=== PATIENT | male | born 1960 | race Caucasian/White ===

== ENCOUNTER 2019-10-11 00:50 | Outpatient (CLI) | payer OTHER, SELFPAY ==
[2019-10-11 18:19] LABS: SARS-CoV-2 RNA PCR Negative
== END 2019-10-11 00:51 | disposition home or self-care (01) ==
LOC: ANHCOVIDDT 00:51
PROVIDERS: PCP Internal Medicine; Visit Provider Internal Medicine Gastroenterology
DX: Z01.812 Encounter for preprocedural laboratory examination (principal); Z20.828 Contact with and (suspected) exposure to other viral communicable diseases
CPT/HCPCS: 87635; C9803; U0003

== ENCOUNTER 2019-10-13 01:28 | Day surgery (SDC) | payer OTHER, SELFPAY ==
[2019-10-05 13:27] VITALS: BMI 29.2
[2019-10-13 10:04] VITALS: BP 181/93; PULSE 82; RESP 16; TEMP 36.8; O2SAT 98; BMI 28.3
[2019-10-13] MEDS: LACTATED RINGERS 1,000 ML 150 ML IV CONT (10:20)
--- NOTE | 2019-10-13 10:35 | P.PNAN_ITS ---
Anes - Initial Pre Proc Eval Procedure: Operation Date: 10/13/19 11:15 Proposed Procedures p Screening Colonoscopy - Willie Bragg MD Date/Time: 10/13/19 10:35 Surgeon: Willie Bragg MD Pre Op Diagnosis: neoplasm screening Patient Data Age: 58 Gender: M Height: 5 ft 6 in Weight: 79.7 kg Last Vital Signs Temp 98.2 F 10/13/19 10:04 Pulse 82 10/13/19 10:04 Resp 16 10/13/19 10:04 BP 181/93 H 10/13/19 10:04 Pulse Ox 98 10/13/19 10:04 Allergies Allergy/AdvReac Type Severity Reaction Status Date / Time azithromycin Allergy Unknown hives Verified 10/13/19 10:03 Z-PACK Allergy Mild hives Uncoded 10/13/19 10:03 Home Medications Medication Instructions Recorded Confirmed Type aspirin 81 mg tablet,delayed 81 mg PO DAILY 01/19/19 10/13/19 History release omega-3 fatty acids 1,000 mg 1,000 mg PO DAILY 01/19/19 10/13/19 History capsule lisinopril 10 mg tablet 10 mg PO DAILY #90 tablet 09/01/19 10/13/19 Rx atorvastatin 80 mg tablet 80 mg PO DAILY #90 tablet 09/11/19 10/13/19 Rx ezetimibe [Zetia] See Rx Instructions .ROUTE .COMPLEX 10/05/19 10/13/19 History peg 3350-electrolytes 236 240 ml PO Q10M #4000 ml 10/09/19 Rx gram-22.74 gram-6.74 gram-5.86 gram solution Patient hx anesthesia problems: none Family hx anesthesia problems: none PMFSH Past Medical History Medical History (Updated 10/13/19 @ 10:35 by Ben West MD) Contact dermatitis Eczema Hypertension Infection of thumb Mixed hyperlipidemia Surgical History Surgical History [place] teeth removed Social History Social History Smoking status: Never smoker Alcohol intake: current Gender identity (if verbalized by the patient): Male Sexual Orientation (if Verbalized by the Patient): Straight or Heterosexual Anes - Eval Final PreProcedure Day of Procedure 10/13/19 10:35 Patient weight: normal Heart: regular rate and rhythm Lungs: clear to auscultation Airway: Mallampati scale class II Neurological: alert and oriented Last oral intake: >/= 8 hours ASA classification: II Emergent: no Anesthetic plan: proceed Anesthesia type and monitoring: general GIVS and standard monitoring Informed Consent: The patient's anesthetic plan and its attendant risks and linnette efits were discussed with the patient/family/POA. Questions were solicited and answers provided to the satisfaction of the patient/family/POA.
--- NOTE | 2019-10-13 11:23 | PM.HPGS ---
History of Present Illness History of Present Illness Consent: Risks, benefits, and alternatives have been discussed and questions answered. Patient agrees to proceed with procedure. Chief complaint: neoplasm screening Narrative: Manuel Bolaños is a 58 year old male here for first colonoscopy, had + cologuard Review of Systems Constitutional: Constitutional: Denies headache(s) and Denies weakness Eyes: Eyes: Denies blurry vision ENT: Reports Normal hearing present, Denies headache(s) and Denies neck pain Cardiovascular: Cardiovascular: Denies chest pain and Denies dyspnea Respiratory: Respiratory: Denies dyspnea Gastrointestinal: Gastrointestinal: Reports no additional gastrointestinal complaints Genitourinary: Genitourinary: Denies dysuria Musculoskeletal: Musculoskeletal: Denies neck pain Integumentary/Breasts: Skin/Breast: Denies dry skin Neurologic: Reports Normal hearing present, Denies headache(s) and Denies weakness Psychiatric: Psychiatric: Denies anxiety Endocrine: Endocrine: Denies change in body appearance Hematologic/Lymphatic: Hematologic/Lymphatic: Denies easy bleeding Allergic/Immunologic: Allergic/Immunologic: Denies urticaria PMFSH Past Medical History Medical History (Updated 10/13/19 @ 11:23 by Willie Bragg MD) Contact dermatitis Eczema Hypertension Infection of thumb Mixed hyperlipidemia Positive colorectal cancer screening using Cologuard test Surgical History Surgical History [place] teeth removed Social History Social History Smoking status: Never smoker Alcohol intake: current Gender identity (if verbalized by the patient): Male Sexual Orientation (if Verbalized by the Patient): Straight or Heterosexual Meds Home Medications and Allergies Home Medications Medication Instructions Recorded Confirmed Type aspirin 81 mg tablet,delayed 81 mg PO DAILY 01/19/19 10/13/19 History release omega-3 fatty acids 1,000 mg 1,000 mg PO DAILY 01/19/19 10/13/19 History capsule lisinopril 10 mg tablet 10 mg PO DAILY #90 tablet 09/01/19 10/13/19 Rx atorvastatin 80 mg tablet 80 mg PO DAILY #90 tablet 09/11/19 10/13/19 Rx ezetimibe [Zetia] See Rx Instructions .ROUTE .COMPLEX 10/05/19 10/13/19 History peg 3350-electrolytes 236 240 ml PO Q10M #4000 ml 10/09/19 Rx gram-22.74 gram-6.74 gram-5.86 gram solution Allergies Allergy/AdvReac Type Severity Reaction Status Date / Time azithromycin Allergy Unknown hives Verified 10/13/19 10:03 Z-PACK Allergy Mild hives Uncoded 10/13/19 10:03 Vital Signs Vital Signs - 24 hr 10/13/19 10:04 Temperature 98.2 F Pulse Rate 82 Respiratory Rate 16 Blood Pressure 181/93 H Pulse Oximetry 98 Exam Const: General: comfortable and no acute distress HENMT: General nose exam: Normal nares present Eyes: General: appearance normal, both eyes and all related structures Neck: Neck: no JVD Resp: Auscultation: clear to auscultation bilaterally Cardio: Rate: regular rate Rhythm: regular rhythm GI: Inspection: non-distended GI Palp: Yes Soft to palpation Skin: General skin exam: normal color Neuro: General: gait normal Speech: normal speech Extrem: General: normal to inspection Psych: Mental Status: mental status grossly normal Assessment and Plan Assessment and plan (1) Positive colorectal cancer screening using Cologuard test: Code(s): R19.5 - Other fecal abnormalities Status: Acute Assessment and Plan: will proceed with colonoscopy
[2019-10-13 11:53] VITALS: BP 121/72; PULSE 61; RESP 16; O2SAT 99
[2019-10-13 12:03] VITALS: BP 141/79; PULSE 60; RESP 22; O2SAT 94
[2019-10-13 12:13] VITALS: BP 138/82; PULSE 60; RESP 15; O2SAT 100
== END 2019-10-13 12:27 | disposition home or self-care (01) ==
PROVIDERS: PCP Internal Medicine; Visit Provider Internal Medicine Gastroenterology
PROC: 0DJD8ZZ Inspection of Lower Intestinal Tract, Via Natural or Artificial Opening Endoscopic (ICD-10-PCS; CPT 45378; principal; 2019-10-13 11:15)
DX: R19.5 Other fecal abnormalities (principal); D12.0 Benign neoplasm of cecum; D12.2 Benign neoplasm of ascending colon; D12.8 Benign neoplasm of rectum; I10 Essential (primary) hypertension; E78.2 Mixed hyperlipidemia
CPT/HCPCS: 45385; 45381; 88305; J2001; J2704; J7120

== ENCOUNTER 2021-12-17 13:50 | Outpatient (CLI) | payer OTHER, SELFPAY ==
--- NOTE | ~2021-12-17 | XR_ITS ---
EXAMINATION: XR chest 2V Exam Date/Time: 12/17/2021 14:15 CDT HISTORY: R05.9-Cough, unspecified x2 months, occasionally productive Comparison: None available. RESULT: Lines, tubes, and devices: None. Lungs and pleura: Calcified right midlung granuloma. Streaky perihilar opacities with cuffing. Cardiomediastinal silhouette: Unremarkable. Other: No acute osseous or upper abdominal finding. IMPRESSION: Pulmonary opacities may represent bronchiolitis, as can be seen with atypical infection, asthma, aspi ration, and small airways disease. Reviewed, dictated and finalized at location K. IMPRESSION: Pulmonary opacities may represent bronchiolitis, as can be seen with atypical i nfection, asthma, aspiration, and small airways disease.
== END 2021-12-17 13:51 | disposition home or self-care (01) ==
PROVIDERS: PCP Internal Medicine; Visit Provider Internal Medicine
DX: R05.9 Cough, unspecified (principal); R91.8 Other nonspecific abnormal finding of lung field
CPT/HCPCS: 71046

== ENCOUNTER 2022-01-21 07:09 | Outpatient (CLI) | payer OTHER, SELFPAY ==
--- NOTE | ~2022-01-21 | XR_ITS ---
XR chest 2V 01/21/2022 07:26 Indication: Bronchitis. Dyspnea. Procedure: PA and lateral views of the chest Comparison: 12/17/2021 Findings: Heart size normal. No focal air space disease, pulmonary edema, pleural effusion or suspect ed pneumothorax. Impression: 1: No acute cardiopulmonary disease. Reviewed, dictated and finalized at location A. [employer]PER[employer] Impression: 1: No acute cardiopulmonary disease.
== END 2022-01-21 07:10 | disposition home or self-care (01) ==
LOC: ANHIMG 07:13
PROVIDERS: PCP Internal Medicine; Visit Provider Internal Medicine
DX: J21.9 Acute bronchiolitis, unspecified (principal)
CPT/HCPCS: 71046

== ENCOUNTER 2022-09-18 03:57 | Day surgery (SDC) | payer OTHER, SELFPAY ==
[2022-09-09 09:07] VITALS: BMI 29.0
[2022-09-18 07:02] VITALS: BP 135/89; PULSE 60; RESP 20; TEMP 36.5
[2022-09-18] MEDS: LACTATED RINGERS 1,000 ML 150 ML IV CONT (07:17)
--- NOTE | 2022-09-18 07:55 | WPDANESEPPF ---
Anes - Initial Pre Proc Eval Procedure: Operation Date: 09/18/22 08:15 Proposed Procedures p Colonoscopy - Willie Bragg MD Date/Time: 09/18/22 07:55 Surgeon: Willie Bragg MD Pre Op Diagnosis: hx of colon polyps Patient Data Age: 61 Gender: M Height: 1.7 m Weight: 85 kg Last Vital Signs Temp 97.7 F 09/18/22 07:02 Pulse 60 09/18/22 07:02 Resp 20 09/18/22 07:02 BP 135/89 09/18/22 07:02 O2 Del Method Room Air 09/18/22 07:02 Allergies Allergy/AdvReac Type Severity Reaction Status Date / Time azithromycin Allergy Unknown hives Verified 09/18/22 07:01 Home Medications Medication Instructions Recorded Confirmed Type aspirin 81 mg tablet,delayed 81 mg PO DAILY 01/19/19 09/09/22 History release (Aspir-Low) omega-3 fatty acids 1,000 mg 1,000 mg PO DAILY 01/19/19 09/09/22 History capsule (Fish Oil Concentrate) atorvastatin 80 mg tablet 80 mg PO DAILY 09/09/22 09/09/22 History ezetimibe 10 mg tablet 10 mg PO DAILY 09/09/22 09/09/22 History lisinopril 10 mg tablet 10 mg PO DAILY 09/09/22 09/09/22 History Patient hx anesthesia problems: none Family hx anesthesia problems: none Results Review: All pre-operative results and documents have been reviewed as part of the pre-operative evaluation. [facility] Past Medical History Medical History Contact dermatitis Eczema Hypertension Infection of thumb Mixed hyperlipidemia Positive colorectal cancer screening using Cologuard test Surgical History Surgical History [place] teeth removed Family History Family History Father Malignant neoplasm of prostate Family history of diabetes mellitus in first degree relative Other Family history of premature coronary heart disease Social History Social History Smoking status: Never smoker Second hand tobacco smoke exposure: No Alcohol intake: current Drinks per week: 1 Alcohol use details: occasional Substance use: never Substance use type: does not use Lack of Transportation: No Lack of Food: Never True Current Housing: I Have Housing Concerned About Future Housing: No Difficulty Paying Gas/Electric Bills: No Difficulty Paying for Meds: No Currently Unemployed: No Education: High School Diploma/GED Difficulty w/ Childcare or Family Care: No Living arrangements: with family Gender identity (if verbalized by the patient): Male Sexual Orientation (if Verbalized by the Patient): Straight or Heterosexual Spiritual care concerns: No Anes - Eval Final PreProcedure Day of Procedure 09/18/22 07:55 Patient weight: normal Heart: regular rate and rhythm Lungs: clear to auscultation Airway: Mallampati scale class II Neurological: alert and oriented Last oral intake: >/= 8 hours ASA classification: II Emergent: no Anesthetic plan: proceed Anesthesia type and monitoring: general GIVS and standard monitoring Results Review: All pre-operative results and documents have been reviewed as part of the pre-operative evaluation. Informed Consent: The patient's anesthetic plan and its attendant risks and benefits were discussed with the patient/family/POA. Questions were solicited and answers provided to the satisfaction of the patient/family/POA.
--- NOTE | 2022-09-18 08:05 | PM.HPGS ---
History of Present Illness History of Present Illness Consent: Risks, benefits, and alternatives have been discussed and questions answered. Patient agrees to proceed with procedure. Chief complaint: hx of colon polyps Narrative: Manuel Bolaños is a 61 year old male with polyps in 2020 Review of Systems Constitutional: Constitutional: Denies headache(s) and Denies weakness Eyes: Eyes: Denies blurry vision ENT: Reports Normal hearing present, Denies headache(s) and Denies neck pain Cardiovascular: Cardiovascular: Denies chest pain and Denies dyspnea Respiratory: Respiratory: Denies dyspnea Gastrointestinal: Gastrointestinal: Reports no additional gastrointestinal complaints Genitourinary: Genitourinary: Denies dysuria Musculoskeletal: Musculoskeletal: Denies neck pain Integumentary/Breasts: Skin/Breast: Denies dry skin Neurologic: Reports Normal hearing present, Denies headache(s) and Denies weakness Psychiatric: Psychiatric: Denies anxiety Endocrine: Endocrine: Denies change in body appearance Hematologic/Lymphatic: Hematologic/Lymphatic: Denies easy bleeding Allergic/Immunologic: Allergic/Immunologic: Denies urticaria PMFSH Past Medical History Medical History Contact dermatitis Eczema Hypertension Infection of thumb Mixed hyperlipidemia Positive colorectal cancer screening using Cologuard test Surgical History Surgical History [place] teeth removed Family History Family History Father Malignant neoplasm of prostate Family history of diabetes mellitus in first degree relative Other Family history of premature coronary heart disease Social History Social History Smoking status: Never smoker Second hand tobacco smoke exposure: No Alcohol intake: current Drinks per week: 1 Alcohol use details: occasional Substance use: never Substance use type: does not use Lack of Transportation: No Lack of Food: Never True Current Housing: I Have Housing Concerned About Future Housing: No Difficulty Paying Gas/Electric Bills: No Difficulty Paying for Meds: No Currently Unemployed: No Education: High School Diploma/GED Difficulty w/ Childcare or Family Care: No Living arrangements: with family Gender identity (if verbalized by the patient): Male Sexual Orientation (if Verbalized by the Patient): Straight or Heterosexual Spiritual care concerns: No Meds Home Medications and Allergies Home Medications Medication Instructions Recorded Confirmed Type aspirin 81 mg tablet,delayed 81 mg PO DAILY 01/19/19 09/09/22 History release (Aspir-Low) omega-3 fatty acids 1,000 mg 1,000 mg PO DAILY 01/19/19 09/09/22 History capsule (Fish Oil Concentrate) atorvastatin 80 mg tablet 80 mg PO DAILY 09/09/22 09/09/22 History ezetimibe 10 mg tablet 10 mg PO DAILY 09/09/22 09/09/22 History lisinopril 10 mg tablet 10 mg PO DAILY 09/09/22 09/09/22 History Allergies Allergy/AdvReac Type Severity Reaction Status Date / Time azithromycin Allergy Unknown hives Verified 09/18/22 07:01 Vital Signs Vital Signs - 24 hr 09/18/22 07:02 Temperature 97.7 F Pulse Rate 60 Respiratory Rate 20 Blood Pressure 135/89 Oxygen Delivery Room Air Exam Const: General: comfortable and no acute distress HENMT: Face/Nose/Sinus: Normal nares present Eyes: General: appearance normal, both eyes and all related structures Neck: Neck: no JVD Resp: Auscultation: clear to auscultation bilaterally Cardio: Rate: regular rate Rhythm: regular rhythm GI: Inspection: non-distended GI Palp: Yes Soft to palpation Skin: General skin exam: normal color Neuro: General: gait normal Speech: normal speech Extrem: General: normal to inspection Psych: Mental Status: m
[2022-09-18 08:28] VITALS: BP 98/61; PULSE 63; RESP 15; O2SAT 98
[2022-09-18 08:38] VITALS: BP 98/60; PULSE 66; RESP 18; O2SAT 98
[2022-09-18 08:48] VITALS: BP 116/75; PULSE 58; RESP 16; O2SAT 98
== END 2022-09-18 09:00 | disposition home or self-care (01) ==
PROVIDERS: PCP Family Medicine; Visit Provider Internal Medicine Gastroenterology
PROC: 0DJD8ZZ Inspection of Lower Intestinal Tract, Via Natural or Artificial Opening Endoscopic (ICD-10-PCS; CPT 45378; principal; 2022-09-18 08:15)
DX: Z12.11 Encounter for screening for malignant neoplasm of colon (principal); K57.30 Diverticulosis of large intestine without perforation or abscess without bleeding; K63.5 Polyp of colon; K64.8 Other hemorrhoids; I10 Essential (primary) hypertension; E78.2 Mixed hyperlipidemia; Z79.82 Long term (current) use of aspirin
CPT/HCPCS: 45380; 88305; J2704; J7120

== ENCOUNTER → 2022-11-16 15:08 | Outpatient (CLI) | payer OTHER, SELFPAY ==
--- NOTE | ~2022-11-16 | XR_ITS ---
XR lumbar spine 2-3V DATE: 11/16/2022 15:43 INDICATION: Low back pain TECHNIQUE: AP, lateral, coned lateral lumbosacral views COMPARISON: None FINDINGS: There is a transitional first sacral vertebra. There is prominent loss of disc space height, vacuum phenomenon and moderate degenerative spurring at L5-S1 consistent with moderately severe degenerative disc disease. There is moderate degenerative disc disease at L1-2 and mild to moderate degenerative disc disease at L3-4 and L4-5. No fracture or bone destruction or spondylolisthesis. Included lower thoracic and lumbar pedicles are intact. The sacroiliac joints appear normal. Mild thoracolumbar dextroscoliosis which may partially be positional. IMPRESSION: Transitional first sacral vertebra Moderately severe degenerative disc disease at L5-S1; mild to moderate degenerative disc disease at t he remainder of the lumbar spine Reviewed, dictated and finalized at location L. IMPRESSION: Transitional first sacral vertebra Moderately severe degenerative disc disease at L5-S1; mild to moderate degenera tive disc disease at the remainder of the lumbar spine
--- NOTE | ~2022-11-16 | XR_ITS ---
XR_CERV2-3V_CR DATE: 11/16/2022 15:43 INDICATION: Skin anesthesia TECHNIQUE: AP, open-mouth, odontoid, lateral and swimmer views COMPARISON: None FINDINGS: C1 and C2 are normally aligned and the odontoid process is intact. No fracture or dislocati on or locked facet or prevertebral soft tissue swelling is detected. There is moderately severe degenerative disc disease and mild retrolisthesis at C4-5, C5-6. Moderate degenerative disc disease at C6-7. There is uncovertebral joint spurring at C4-5 and particularly C5-6 and C6-7. IMPRESSION: Cervical spondylosis Reviewed, dictated and finalized at Location A. Reviewed, dictated and finalized at location L. IMPRESSION: Cervical spondylosis
== END ==
PROVIDERS: PCP Nurse Practitioner Family; Visit Provider Nurse Practitioner Family
DX: R20.0 Anesthesia of skin (principal); M43.02 Spondylolysis, cervical region; M51.37 Other intervertebral disc degeneration, lumbosacral region
CPT/HCPCS: 72040; 72100

== ENCOUNTER 2023-01-05 19:07 | Emergency (ER) | payer OTHER, SELFPAY ==
--- NOTE | 2023-01-05 19:11 | ED.SKABFB ---
HPI - Skin/Abscess/Foreign Bdy General Chief complaint: Skin/Abscess/Foreign Body Stated complaint: knot on rt leg Time Seen by Provider: 01/05/23 19:10 Source: patient Mode of arrival: ambulatory Limitations: no limitations History of Present Illness HPI narrative: Perez is a 8-year-old male patient presenting to the clinic today with complaints of a knot on his right lower anterior leg. He reports pain started yesterday. No known injury. Area is very warm to the touch with swelling. Related Data Home Medications Medication Instructions Recorded Confirmed aspirin 81 mg tablet,delayed 81 mg PO DAILY 01/19/19 01/05/23 release (Aspir-Low) omega-3 fatty acids 1,000 mg 1,000 mg PO DAILY 01/19/19 01/05/23 capsule (Fish Oil Concentrate) Allergies Allergy/AdvReac Type Severity Reaction Status Date / Time azithromycin AdvReac Mild hives Verified 01/05/23 19:09 Review of Systems Review of Systems: Pertinent positives per HPI. Patient denies any fever, chills, rash, headache, visual changes, dizziness, cough, runny nose, sore throat, shortness of breath, chest pain, palpitations, nausea, vomiting, diarrhea, constipation, abdominal pain, or any urinary issues. [facility] Past Medical History Medical History Contact dermatitis Eczema Hypertension Infection of thumb Mixed hyperlipidemia Positive colorectal cancer screening using Cologuard test Surgical History Surgical History [place] teeth removed Family History Family History Father Malignant neoplasm of prostate Family history of diabetes mellitus in first degree relative Other Family history of premature coronary heart disease Social History Social History Smoking status: Never smoker Second hand tobacco smoke exposure: No Alcohol intake: current Drinks per week: 1 Alcohol use details: occasional Substance use: never Substance use type: does not use Lack of Transportation: No Lack of Food: Never True Current Housing: I Have Housing Concerned About Future Housing: No Difficulty Paying Gas/Electric Bills: No Difficulty Paying for Meds: No Currently Unemployed: No Education: High School Diploma/GED Difficulty w/ Childcare or Family Care: No Living arrangements: with family Gender identity (if verbalized by the patient): Male Sexual Orientation (if Verbalized by the Patient): Straight or Heterosexual Spiritual care concerns: No Comments At the time of my signature, I reviewed and agree with the nursing past medical, surgical, social, and family history. There is no relevant family history pertinent to the patient complaint. Exam Narrative: General: Well-developed, well nourished, in no apparent distress Head: Normocephalic, atraumatic. Cardio: Regular rate and rhythm, s1 and s2 normal, no murmur appreciated. Resp: Clear to auscultation bilaterally, no rhonchi, rales, wheezing or rubs. Musculoskeletal: No deformity, 3cm by 3-1/2 cm knot area to the anterior lower tib-fib, erythemic, tender to palpation, grossly normal range of motion, muscle strength strong and equal, peripheral pulse strong, trace edema and right lower extremity, no cyanosis, normal gait and station Course Course Emergency Course: Portions of this record may have been created with voice recognition software. Level of Care: Express Care Visit Vital Signs Vital signs: Vital signs reviewed Transfer Transfered to: [facility] Transportation: Other (private car) Transfer rationale: RLE edema and knot area with pain and erythema r/o DVT Accepting physician: Ricki Transfer comments: Private car MDM - Skin/Abscess/Foreign Bdy MDM Narrative Medical decision making narrative: At the time of visit
[2023-01-05 19:18] VITALS: BP 124/68; PULSE 96; RESP 16; TEMP 36.9; O2SAT 98
[2023-01-05 19:20] VITALS: BP 124/68; PULSE 96; RESP 16; TEMP 36.9; O2SAT 98
== END 2023-01-05 19:28 | disposition short-term general hospital (02) ==
PROVIDERS: Emergency Provider Nurse Practitioner Family; PCP Family Medicine
DX: M79.661 Pain in right lower leg (principal); R22.41 Localized swelling, mass and lump, right lower limb; I10 Essential (primary) hypertension; E78.2 Mixed hyperlipidemia; Z79.82 Long term (current) use of aspirin
CPT/HCPCS: 99212; G0463

== ENCOUNTER 2023-01-05 19:42 | Emergency (ER) | payer OTHER, SELFPAY ==
[2023-01-05] VITALS (11 sets, daily range): BP systolic 125–153; BP diastolic 69–78; PULSE 83–88; RESP 14–19; TEMP 36.2–37.3; O2SAT 96–99
--- NOTE | ~2023-01-05 | US_ITS ---
EXAMINATION: US venous doppler LE RT DATE: 01/05/2023 21:04 INDICATION: swelling . TECHNIQUE: Grayscale images without and with compression and Doppler images of the right lower extrem ity veins were obtained. COMPARISON: None FINDINGS: The right common femoral vein, profunda (deep) femoral vein, femoral vein, popliteal vein, peroneal v ein, posterior tibial veins, gastrocnemius vein, and greater saphenous vein are patent. IMPRESSION: Patent right lower extremity veins. No evidence of deep venous thrombosis. Reviewed, dictated and finalized at location K. F GRINDER AND SCREENER
--- NOTE | 2023-01-05 20:00 | ED.EXTPRO ---
HPI - Extremity Problem General Chief complaint: Extremity Problem,Nontraumatic Stated complaint: possible dvt Time Seen by Provider: 01/05/23 19:53 History of Present Illness HPI Narrative: Patient presents to the emergency department from home. He was in urgent care for right lower extremity pain and swelling. Swelling was noticed yesterday and he has a small contusion and abrasion. Swelling has gradually gotten worse since yesterday. He denies fevers and chills, denies cough and shortness of breath. Has had a cough Related Data Home Medications Medication Instructions Recorded Confirmed aspirin 81 mg tablet,delayed 81 mg PO DAILY 01/19/19 01/05/23 release (Aspir-Low) omega-3 fatty acids 1,000 mg 1,000 mg PO DAILY 01/19/19 01/05/23 capsule (Fish Oil Concentrate) Allergies Allergy/AdvReac Type Severity Reaction Status Date / Time azithromycin AdvReac Mild hives Verified 01/05/23 19:09 Review of Systems Review of Systems: review of systems negative except what is documented in the HPI [facility] Past Medical History Medical History Contact dermatitis Eczema Hypertension Infection of thumb Mixed hyperlipidemia Positive colorectal cancer screening using Cologuard test Surgical History Surgical History [place] teeth removed Family History Family History Father Malignant neoplasm of prostate Family history of diabetes mellitus in first degree relative Other Family history of premature coronary heart disease Social History Social History Smoking status: Never smoker Second hand tobacco smoke exposure: No Alcohol intake: current Drinks per week: 1 Alcohol use details: occasional Substance use: never Substance use type: does not use Lack of Transportation: No Lack of Food: Never True Current Housing: I Have Housing Concerned About Future Housing: No Difficulty Paying Gas/Electric Bills: No Difficulty Paying for Meds: No Currently Unemployed: No Education: High School Diploma/GED Difficulty w/ Childcare or Family Care: No Living arrangements: with family Gender identity (if verbalized by the patient): Male Sexual Orientation (if Verbalized by the Patient): Straight or Heterosexual Spiritual care concerns: No Exam Narrative: GENERAL: Well-appearing, well-nourished, and in no acute distress. HEAD: Normocephalic, atraumatic. EYES: PERRLA and EOMI. ENT: Nares clear, no rhinorrhea or epistaxis. Mucous membranes moist. NECK: Supple. CHEST: Clear to auscultation. No respiratory distress. HEART: Regular rate and rhythm. ABDOMEN: Soft, nontender, nondistended. EXTREMITIES: Normal range of motion. mild edema and warmth left lower extremity. Right lower extremity warm with severe edema SKIN: Warm, dry, no rash. small contusion right lower extremity NEURO: No focal deficits. Alert and oriented x3. PSYCH: Normal mood and affect. Course Vital Signs Vital signs: Vital Signs Temperature 36.2 C L 01/05/23 19:44 Pulse Rate 88 01/05/23 19:44 Respiratory Rate 15 01/05/23 19:44 Blood Pressure 153/71 H 01/05/23 19:44 Pulse Oximetry 97 01/05/23 19:44 Oxygen Delivery Room Air 01/05/23 19:44 Temperature 37.3 C 01/05/23 20:59 Pulse Rate 77 01/06/23 06:46 Respiratory Rate 15 01/06/23 06:46 Blood Pressure 135/74 01/06/23 06:46 Pulse Oximetry 97 01/06/23 06:46 Oxygen Delivery Room Air 01/05/23 19:44 MDM - Extremity (Nontraumatic) Lab Data 01/05/23 20:12 01/05/23 20:12 Labs: Lab Results 01/05/23 01/05/23 Range/Units 20:12 22:24 WBC 274.3 H* (4.5-10.0) K/mm3 RBC 3.27 L (4.6-6.20) M/mm3 Hgb 10.4 L (14.0-18.0) g/dL Hct 29.8
[2023-01-05 20:19] LABS: Hematocrit 29.8 % (42.0-52.0); Hemoglobin 10.4 g/dL (14.0-18.0); Mean Corpuscular HGB Conc 34.9 g/dl (32-36); Mean Corpuscular Hemoglobin 31.8 pg (26-34); Mean Corpuscular Volume 91.1 fl (80-100); Mean Platelet Volume 9.9 fl (7.4-10.4); Platelet Count Result 980 k/mm3 (150-375); Red Blood Count 3.27 M/mm3 (4.6-6.20); Red Cell Distribution Width 19.7 % (11.5-14.5)
[2023-01-05 20:29] LABS: Alanine Aminotransferase 47 U/L (6-50); Albumin Level 4.5 g/dL (3.5-5.1); Alkaline Phosphatase 103 U/L (38-126); Anion Gap 7 mmol/L (8-16); Aspartate Amino Transferase 70 U/L (17-59); Bilirubin,Total 0.9 mg/dL (0.2-1.3); Blood Urea Nitrogen 14 mg/dL (9-20); Calcium 9.2 mg/dL (8.4-10.2); Carbon Dioxide 28 mmol/L (22-30); Chloride 106 mmol/L (98-107); Estimated CRCL calculation 53 ml/min; Estimated Glomerular Filt Rate > 60; Glucose 91 mg/dL (65-110); Potassium 3.9 mmol/L (3.4-5.0); Sodium 141 mmol/L (137-145)
[2023-01-05 20:46] LABS: White Blood Count 274.3 K/mm3 (4.5-10.0)
[2023-01-05 20:47] LABS: D Dimer 0.65 ug/mL (<0.48)
[2023-01-05 21:15] LABS: Band Neutrophils Percent 10 % (0-6); Basophils Absolute Manual 32.91 K/mm3 (0.0-0.1); Basophils Percent Manual 12 % (0-1); Eosinophils Absolute Manual 10.97 K/mm3 (0.02-0.5); Eosinophils Percent Manual 4 % (0-4); Lymphocytes Absolute Manual 5.48 K/mm3 (1.1-4.5); Lymphocytes Percent Manual 2 % (18-44); Metamyelocytes Percent 9 %; Myelocytes Percent 10 %; Neutrophils Absolute Manual 120.69 K/mm3 (1.3-6.7); Neutrophils Percent Manual 34 % (46-73); Promyelocytes Percent 3 %; Total Cells Counted 100
[2023-01-05 21:16] LABS: Nucleated Red Blood Cells 1 %; Other Cell Type 16; Platelet Estimate Increased (Adequate)
[2023-01-05 21:17] LABS: Schistocytes None Seen (NORMAL)
--- NOTE | 2023-01-05 21:36 | PC.NURSE ---
This RN spoke to [place] from [facility] xfr line. All questions answered. Awaiting bed assignment.
[2023-01-05 22:25] LABS: Magnesium 2.1 mg/dL (1.6-2.3); Phosphorus 4.3 mg/dL (2.5-4.5); Uric Acid 10.1 mg/dL (3.5-8.5)
[2023-01-05 22:42] LABS: INR 1.2
[2023-01-05 22:43] LABS: Partial Thromboplastin Time 31.7 SECONDS (22.3-36.8)
[2023-01-05 22:45] LABS: Lactate Dehydrogenase 1821 U/L (120-246)
[2023-01-06] VITALS (30 sets, daily range): BP systolic 112–135; BP diastolic 58–94; PULSE 70–88; RESP 14–24; O2SAT 93–100
--- NOTE | 2023-01-06 00:45 | PC.NURSE ---
Pt placed onto hospital bed. No requests at this time. Call light within reach.
[2023-01-06] MEDS: SODIUM CHLORIDE 0.9% IV 1,000 ML 150 ML IV CONT (06:04)
--- NOTE | 2023-01-06 06:18 | PC.NURSE ---
Pt placed on [facility] waitlist. Awaiting bed placement.
--- NOTE | 2023-01-06 07:08 | PC.NURSE ---
Report given to JOANA Burch at this time.
--- NOTE | 2023-01-06 07:35 | PC.NURSE ---
Ordered Breakfast Tray
--- NOTE | 2023-01-06 11:44 | PC.NURSE ---
Spoke monik/Racquel at [facility] to update VS. No bed at this time.
== END 2023-01-06 12:21 | disposition short-term general hospital (02) ==
PROVIDERS: Emergency Provider Emergency Medicine; PCP Family Medicine
DX: C95.00 Acute leukemia of unspecified cell type not having achieved remission (principal); M79.605 Pain in left leg; I10 Essential (primary) hypertension; E78.5 Hyperlipidemia, unspecified
CPT/HCPCS: 36415; 80053; 83615; 83735; 84100; 84550; 85025; 85380; 85384; 85610; 85730; 93971; 96360; 96361; 99285; J7030

== ENCOUNTER 2024-06-15 13:24 | Outpatient (CLI) | payer OTHER, SELFPAY ==
--- NOTE | 2024-06-15 14:12 | ECHO_ITS ---
Patient Info Name: Manuel Bolaños Age: 63 years : 1960 Gender: Male Ht: 66 in Wt: 160 lbs BSA: 1.85 m2 HR: 55 bpm BP: 141 / 86 mmHg Technical Quality: Good Exam Date: 06/15/2024 2:16 PM Exam Location: Echo Lab Patient Status: Outpatient Admit Date: 06/15/2024 Staff Ordering Physician: Igor Tellez MD Construction Electrician: Nafisa Kumar RDCS Attending Provider: Igor Tellez MD Referring Physician: Geoff JOYCE; Exam Type: CA echo doppler color flow Study Info Indications R01.1 - Cardiac murmur, unspecified Complete two-dimensional, color flow and Doppler transthoracic echocardiogram is performed. Summary 1. Complete two-dimensional, color flow and Doppler transthoracic echocardiogram is performed. 2. Left ventricular chamber dimension is normal. 3. Left ventricular systolic function is normal, estimated at 65-70%. 4. The left ventricular diastolic function is normal. 5. E/e' 8 is minimally elevated. 6. Left atrial chamber dimension is mildly enlarged. 7. There is mild aortic valve sclerosis. 8. There is trace mitral valve regurgitation. 9. There is trace tricuspid valve regurgitation. 10. No pulmonary hypertension, estimated pulmonary arterial systolic pressure is 20 mmHg. Left Ventricle E/e' 8 is minimally elevated. Left ventricular chamber dimension is normal. Left ventricular systolic function is normal, estimated at 65-70%. The left ventricular diastolic function is normal. Right Ventricle Right ventricular systolic function is normal and with normal TAPSE 2.4 cm. Right ventricular chamber dimension is normal. Left Atria Left atrial chamber dimension is mildly enlarged. Right Atria Right atrial chamber dimension is normal. Aortic Valve The aortic valve is trileaflet. There is mild aortic valve sclerosis. There is no aortic valve stenosis. There is no aortic valve regurgitation. Pulmonic Valve There is no pulmonic regurgitation. Mitral Valve There is no mitral valve stenosis. There is trace mitral valve regurgitation. Tricuspid Valve There is trace tricuspid valve regurgitation. No pulmonary hypertension, estimated pulmonary arterial systolic pressure is 20 mmHg. Pericardium/Pleural There is no pericardial effusion. Inferior Vena Cava Normal inferior vena cava with >50% collapse upon inspiration consistent with normal right atrial pressure, 5 mmHg. Aorta The aortic root size at the sinus of Valsalva is normal. Left Ventricular Outflow Tract Name Value Normal LVOT 2D LVOT Diameter 1.7 cm LVOT Doppler LVOT Peak Gradient 9 mmHg LVOT Mean Gradient 4 mmHg LVOT VTI 35 cm LVOT VTI/AV VTI Ratio 0.9 LVOT Stroke Volume 76 ml LVOT CO 12.0 l/min LVOT CI 6.5 l/min/m2 Pulmonic Valve Name Value Normal PV Doppler PV Peak Gradient 7 mmHg Mitral Valve Name Value Normal MV Doppler MV Decel [place] 569 cm/s2 MV PHT 43 ms MV Area (PHT) 5.1 cm2 4.0-5.0 MV Diastolic Function MV E Peak Velocity 84 cm/s MV A Peak Velocity 57 cm/s MV E/A 1.5 MV Decel Time 148 ms MV Annular TDI MV E/e' (Septal) 10.0 <=8.0 MV E/e' (Lateral) 7.0 <=8.0 MV E/e' (Average) 8.5 Tricuspid Valve Name Value Normal TV Regurgitation Doppler TR Peak Velocity 191 cm/s TR Peak Gradient 14 mmHg Estimated PAP/RSVP RA Pressure 5 mmHg <=5 PA Systolic Pressure 20 mmHg <36 RV Systolic Pressure 20 mmHg <36 Aorta Name Value Normal Ascending Aorta Ao Root Diameter (MM) 2.9 cm Ao Root Diam Index (MM) 1.6 cm/m2 Aortic Valve Name Value Normal AV Doppler AV Peak Velocity 174 cm/s AV Peak Gradient 12 mmHg AV Mean Gradient 6 mmHg AV VTI 37 cm AV Area (Cont Eq VTI) 2.0 cm2 >=3.0 AV Area (Cont Eq Gold) 1.9 cm2 AV Regurgitation 2D LVOT Area 2.2 cm2 Ventricles Name Value Normal LV Dimensions 2D/MM IVS Diastolic Thickness (2D) 0.9 cm 0.6-1.0 LVID Diastole (2D) 4.0 cm 4.2-5.8 LVIW Diastolic Thickness (2D) 0.9 cm 0.6-1.0 LVID Systole (2D) 2.1 cm 2.5-4.0 LVOT Diameter 1.7 cm LV Mass (2D Cubed) 111.82 g 88.00-224.00 LV Mass Index (2D Cubed) 60 g/m2 49-115 Relative Wall Thickness (2D) 0.44 LV Fractional Shortening/Ejection Fraction 2D/MM LV Fractional Shortening (2D) 48 % 25-43 LV EF (2D Teicholz) 80 % 52-72 LV Diastolic Volume (4C MOD) 111 ml LV EF (4C MOD) 74 % LV Diastolic Volume (2C MOD) 117 ml LV EF (2C MOD) 66 % LV Diastolic Volume (BP MOD) 115 ml 62-150 LV Diastolic Volume Index (BP MOD) 62 ml/m2 34-74 LV Systolic Volume (BP MOD) 34 ml 21-61 LV Systolic Volume Index (BP MOD) 18 ml/m2 11-31 LV EF (BP MOD) 70 % 52-72 LV Diastolic Length (4C) 7.8 cm LV Systolic Length (4C) 6.2 cm LV Stroke Volume (4C MOD) 82 ml RV Dimensions 2D/MM RVID Diastole (2D) 3.7 cm 2.5-3.5 Atria Name Value Normal LA Dimensions LA Dimension (MM) 3.8 cm 3.0-4.1 LA Volume (4C A-L) 56 ml LA Volume (BP A-L) 67 ml RA Dimensions RA Area (4C) 15.4 cm2 <=18.0 Report Signatures
== END 2024-06-15 13:25 | disposition home or self-care (01) ==
PROVIDERS: PCP Family Medicine; Visit Provider Family Medicine
DX: R01.1 Cardiac murmur, unspecified (principal); I35.8 Other nonrheumatic aortic valve disorders; I51.7 Cardiomegaly
CPT/HCPCS: 93306